=== PATIENT | male | born 1945 | race Caucasian/White ===

== ENCOUNTER 2018-09-14 10:27 | Emergency (ER) | payer MEDICARE, BC ==
--- NOTE | 2018-09-14 11:24 | EDM.PDOC ---
ED HPI GENERAL MEDICAL PROBLEM - General Chief Complaint: Skin Complaint Stated Complaint: BLISTERS ON FINGERS Time Seen by Provider: 09/14/18 10:50 Source of Information: Reports: Patient History Limitations: Reports: No Limitations - History of Present Illness INITIAL COMMENTS - FREE TEXT/NARRATIVE: This 288 pound. 73-year-old man who was a smoker age [age] years of age and quit without history of diabetes or other serious illness except for obesity presents with a history of 4 days ago shoveling the snow for half an hour. He had gloves on but the globes were not well insulated. He now has bullae on the right dominant hand second third and fourth fingers while palmar surface and the left third fourth fingertips. 4 medicines he was amantadine and Protonix and a multivitamin. No history of taking aspirin. He is not an alcoholic. - Related Data Allergies Allergy/AdvReac Type Severity Reaction Status Date / Time No Known Allergies Allergy Verified 09/14/18 10:37 Home Meds: Home Meds Multivitamin [Multiple Vitamins] 1 each PO DAILY 07/11/13 [History] Pantoprazole Sodium [Protonix] 40 mg PO DAILY 07/11/13 [History] amLODIPine Besylate [Amlodipine Besylate] 5 mg PO DAILY 09/14/18 [History] Past Medical History Other Musculoskeletal History: STATES NECK SURGERY. SCAR NOTED AT CERVICAL AREA. DENIES DEFICITS Other Neuro History: STATES HAD BRAIN ANEURYSM - Past Surgical History Other Musculoskeletal Surgeries/Procedures:: LOWER BACK SURGERY ED ROS GENERAL - Review of Systems Review Of Systems: ROS reveals no pertinent complaints other than HPI. ED EXAM, SKIN/RASH Exam: See Below Exam Limited By: No Limitations General Appearance: Alert, WD/WN, No Apparent Distress, Other (A pleasant Obese gentleman with a large abdomen who is in no distress but concerned about the blisters on his fingers.) Eye Exam: Bilateral Eye: Normal Inspection Ears: Normal External Exam Nose: Normal Inspection, Normal Mucosa Throat/Mouth: Normal Inspection, Normal Lips Head: Atraumatic, Normocephalic Neck: Normal Inspection, Supple, Non-Tender Respiratory/Chest: No Respiratory Distress, Lungs Clear, Normal Breath Sounds, No Accessory Muscle Use Cardiovascular: Normal Peripheral Pulses, Regular Rate, Rhythm, No Edema, No Gallop, No JVD, No Murmur, No Rub Peripheral Pulses: 1+: Radial (L), Radial (R) GI/Abdominal: Normal Bowel Sounds, Soft, Non-Tender, No Organomegaly, No Distention, No Abnormal Bruit, No Mass (Male) Exam: Deferred Rectal (Males) Exam: Deferred Back Exam: Normal Inspection Extremities: Non-Tender, No Pedal Edema Neurological: Alert, Oriented, CN II-XII Intact, Normal Cognition, Normal Gait, Normal Reflexes, No Motor/Sensory Deficits Psychiatric: Normal Affect Skin: Warm, Dry, Other (Bullae demonstrated on the right second third and fourth finger that extends from the tip to the DIP palmar surface, and fifth finger bulla extends from the tip to the MP joint. Has trace skin erythema on the norris the MP joints 3,4,5. Left hand distal tips involving 3 cm of the distal norris surface fingers 3,4,5. Fingers 2 and 1 are intact.) Lymphatic: No Adenopathy Course - Re-Assessments/Exams Free Text/Narrative Re-Assessment/Exam: 09/14/18 11:28 consultation obtained from the hyperbaric oxygen experts) [facility]. He is outside the window for hyperbaric oxygen treatment. The surgeon for the burn unit at [facility] has been called and will be calling back. Free Text/Narrative Re-Assessment/Exam: 09/14/18 12:39 Debridement performed all palmar surface of fingers; 25 minutes spent with debridement. Then bacitracin applied Adaptic dressing and tube gauze applied. Patient's tetanus is up-to-date within last 5 years. Departure - Departure Time of Disposition: 11:30 (Still waiting for consultation from the surgery burn unit at the [facility] meehan bite specialist 11:30 to return a call. 11:37 we inquired with Karen Preston uplink up which they have with the burn unit could be arranged so the surgeon at [facility] could view Mr. Roselia perez. At [address] Garcia returned the call from [facility]. Case was discussed. Plans are to debride removed the bullae, apply bacitracin and then Adaptic dressing, have daily dressing changes and follow-up with her surgeon Dr. Blanco next 2 days. Patient will return to the ED on Sunday, tomorrow 09/15/18 to have dressing change. Dad will see Dr. Blanco on 09/16/18. Status has been discussed with Dr. Blanco.) Disposition: Home, Self-Care 01 Condition: Good Clinical Impression: Frostbite of both upper extremities - Discharge Information *PRESCRIPTION DRUG MONITORING PROGRAM REVIEWED*: Not Applicable *COPY OF PRESCRIPTION DRUG MONITORING REPORT IN PATIENT YOLANDA: Not Applicable Referrals: Anders Johnson MD [Primary Care Provider] -
[2018-09-14] MEDS ORDERED: Ibuprofen 600 MG Tab PO ONE (11:34)
[2018-09-14] MEDS ORDERED: Bacitracin Oint 28.35 GM Tube ONE (11:50)
[2018-09-14] MEDS ORDERED: Bacitracin Oint 28.35 GM Tube TOP SCH (12:30)
[2018-09-14 14:25] VITALS: BP 149/74
== END 2018-09-14 13:15 | disposition home or self-care (01) ==
LOC: FB.ED 10:27
DX: T33.532A Superficial frostbite of left finger(s), initial encounter (principal); T33.531A Superficial frostbite of right finger(s), initial encounter; Z79.899 Other long term (current) drug therapy; X31.XXXA Exposure to excessive natural cold, initial encounter
CPT/HCPCS: 16020; 99283; 99284; A9270

== ENCOUNTER → 2018-09-15 | Emergency (ER) | payer MEDICARE, BC ==
[2018-09-15 13:45] VITALS: BP 181/106
== END ==
LOC: FB.EDOUT 11:11
DX: Z53.21 Procedure and treatment not carried out due to patient leaving prior to being seen by health care provider (principal)

== ENCOUNTER 2019-01-09 09:08 | Emergency (ER) | payer MEDICARE, BC ==
--- NOTE | 2019-01-09 10:06 | EDM.PDOC ---
ED HPI GENERAL MEDICAL PROBLEM - General Chief Complaint: General Stated Complaint: FALL Time Seen by Provider: 01/09/19 10:02 Source of Information: Reports: Patient History Limitations: Reports: No Limitations - History of Present Illness INITIAL COMMENTS - FREE TEXT/NARRATIVE: Patient tripped over a rock while walking in an alley, fell to ground. No LOC, denies headache or neck pain. Denies pain of any kind or dizziness. Neighbor saw him fall and called 911. The patient was able to get up on his own and ambulate. Last Tdap 2016. Duration: Hour(s): (1) Location: Reports: Head Severity: Mild - Related Data Allergies Allergy/AdvReac Type Severity Reaction Status Date / Time No Known Allergies Allergy Verified 09/14/18 10:37 Home Meds: Home Meds Multivitamin [Multiple Vitamins] 1 each PO DAILY 07/11/13 [History] Pantoprazole Sodium [Protonix] 40 mg PO DAILY 07/11/13 [History] Hydrocodone/Acetaminophen [Hydrocodon-Acetaminophen 5-325] 1 each PO Q4HR PRN # 16 tablet 09/14/18 [Rx] amLODIPine Besylate [Amlodipine Besylate] 5 mg PO DAILY 09/14/18 [History] Past Medical History HEENT History: Reports: Cataract Cardiovascular History: Reports: Arrhythmia, Hypertension Gastrointestinal History: Reports: GERD, Irritable Bowel Syndrome Other Musculoskeletal History: STATES NECK SURGERY. SCAR NOTED AT CERVICAL AREA. DENIES DEFICITS Other Neuro History: STATES HAD BRAIN ANEURYSM Psychiatric History: Reports: Anxiety, Depression - Past Surgical History Other Musculoskeletal Surgeries/Procedures:: LOWER BACK SURGERY Social & Family History - Tobacco Use Smoking Status *Q: Never Smoker - Caffeine Use Caffeine Use: Reports: None - Alcohol Use Alcohol Use History: No - Recreational Drug Use Recreational Drug Use: No ED ROS GENERAL - Review of Systems Review Of Systems: ROS reveals no pertinent complaints other than HPI. ED EXAM, GENERAL - Physical Exam Exam: See Below Exam Limited By: No Limitations General Appearance: Alert, WD/WN, No Apparent Distress Eye Exam: Bilateral Eye: EOMI, PERRL Nose: Normal Inspection Throat/Mouth: Normal Inspection, No Airway Compromise Head: Other (right forehead abrasion, no facial tenderness) Neck: Non-Tender, Full Range of Motion Respiratory/Chest: No Respiratory Distress, Lungs Clear, Normal Breath Sounds Cardiovascular: Regular Rate, Rhythm, No Murmur GI/Abdominal: Normal Bowel Sounds, Soft, Non-Tender, No Distention Back Exam: Normal Inspection, Full Range of Motion Extremities: Normal Inspection, Normal Range of Motion, Non-Tender Neurological: Alert, Oriented, Normal Cognition, No Motor/Sensory Deficits Psychiatric: Normal Affect, Normal Mood Skin Exam: Warm, Dry EKG INTERPRETATION EKG Date: 01/09/19 Time: 09:39 Rhythm: Other (sinus tachycardia) Rate (Beats/Min): 102 [place]: Normal P-Wave: Present QRS: Normal ST-T: Normal QT: Normal Course - Vital Signs Last Recorded V/S: Last Vital Signs Temp 36.8 C 01/09/19 09:08 Pulse 121 H 01/09/19 09:08 Resp 18 01/09/19 09:08 BP 186/86 H 01/09/19 09:08 Pulse Ox 96 01/09/19 09:08 - Orders/Labs/Meds Orders: Active Orders 24 hr Category Date Time Status EKG Documentation Completion [RC] ASDIRECTED Care 01/09/19 09:12 Active Sodium Chloride 0.9% [Saline Flush] Med 01/09/19 10:33 Active 10 ml FLUSH ASDIRECTED PRN Saline Lock Insert [OM.PC] Routine Oth 01/09/19 10:33 Ordered EKG 12 Lead [EK] Stat Ther 01/09/19 09:12 Ordered Medication Orders Sodium Chloride (Saline Flush) 10 ml FLUSH ASDIRECTED PRN PRN Reason: Keep Vein Open Last Admin: 01/09/19 11:05 Dose: 10 ml Labs: Laboratory Tests 01/09/19 01/09/19 01/09/19 Range/Units 10:08 10:10 10:10 WBC 6.0 (4.5-12.0) X10-3/uL RBC 4.31 (4.30-5.75) x10(6)uL Hgb 13.8 (13.5-17.8) g/dL Hct 41.0 (30.0-51.3) % MCV 95.0 (80-96) fL MCH 32.0 (27.7-33.6) pg MCHC 33.7 (32.2-35.4) g/dL RDW 13.3 (11.5-15.5) % Plt Count 189 (125-369) X10(3)uL MPV 7.1 L (7.4-10.4) fL Neut % (Auto) 67.3 (46-82) % Lymph % (Auto) 23.7 (13-37) % [place] % (Auto) 6.2 (4-12) % Eos % (Auto) 2 (1.0-5.0) % Baso % (Auto) 0 (0-2) % Neut # (Auto) 4.1 (1.6-8.3) # Lymph # (Auto) 1.4 (0.6-5.0) # [place] # (Auto) 0.4 (0.0-1.3) # Eos # (Auto) 0.1 (0.0-0.8) # Baso # (Auto) 0.0 (0.0-0.2) # Sodium 148 H (135-145) mmol/L Potassium 4.5 (3.5-5.3) mmol/L Chloride 111 H (100-110) mmol/L Carbon Dioxide 31 (21-32) mmol/L BUN 19 H (7-18) mg/dL Creatinine 1.4 H (0.70-1.30) mg/dL Est Cr Clr Drug Dosing TNP Estimated GFR (MDRD) 49 L (>60) BUN/Creatinine Ratio 13.6 (9-20) Glucose 123 H (80-116) mg/dL Calcium 9.3 (8.6-10.2) mg/dL Urine Color Yellow (YELLOW) Urine Appearance Clear (CLEAR) Urine pH 5.0 (5.0-6.5) Ur Specific [place] 1.015 (1.010-1.025) Urine Protein Negative (NEGATIVE) mg/dL Urine Glucose (UA) Normal (NORMAL) mg/dL Urine Ketones Negative (NEGATIVE) mg/dL Urine Occult Blood Negative (NEGATIVE) Urine Nitrite Negative (NEGATIVE) Urine Bilirubin Negative (NEGATIVE) Urine Urobilinogen Normal (NEGATIVE) mg/dL Ur Leukocyte Esterase Negative (NEGATIVE) Urine RBC 0-5 (0-5) Urine WBC 0-5 (0-5) Ur Squamous Epith Cells Occasional (NS,R,O) Urine Bacteria Few H (NS) 01/09/19 Range/Units 12:00 WBC (4.5-12.0) X10-3/uL RBC (4.30-5.75) x10(6)uL Hgb (13.5-17.8) g/dL Hct (30.0-51.3) % MCV (80-96) fL MCH (27.7-33.6) pg MCHC (32.2-35.4) g/dL RDW (11.5-15.5) % Plt Count (125-369) X10(3)uL MPV (7.4-10.4) fL Neut % (Auto) (46-82) % Lymph % (Auto) (13-37) % [place] % (Auto) (4-12) % Eos % (Auto) (1.0-5.0) % Baso % (Auto) (0-2) % Neut # (Auto) (1.6-8.3) # Lymph # (Auto) (0.6-5.0) # [place] # (Auto) (0.0-1.3) # Eos # (Auto) (0.0-0.8) # Baso # (Auto) (0.0-0.2) # Sodium 147 H (135-145) mmol/L Potassium 4.5 (3.5-5.3) mmol/L Chloride 110 (100-110) mmol/L Carbon Dioxide 30 (21-32) mmol/L BUN 18 (7-18) mg/dL Creatinine 1.3 (0.70-1.30) mg/dL Est Cr Clr Drug Dosing TNP Estimated GFR (MDRD) 54 L (>60) BUN/Creatinine Ratio 13.8 (9-20) Glucose 116 (80-116) mg/dL Calcium 9.1 (8.6-10.2) mg/dL Urine Color (YELLOW) Urine Appearance (CLEAR) Urine pH (5.0-6.5) Ur Specific [place] (1.010-1.025) Urine Protein (NEGATIVE) mg/dL Urine Glucose (UA) (NORMAL) mg/dL Urine Ketones (NEGATIVE) mg/dL Urine Occult Blood (NEGATIVE) Urine Nitrite (NEGATIVE) Urine Bilirubin (NEGATIVE) Urine Urobilinogen (NEGATIVE) mg/dL Ur Leukocyte Esterase (NEGATIVE) Urine RBC (0-5) Urine WBC (0-5) Ur Squamous Epith Cells (NS,R,O) Urine Bacteria (NS) Meds: Medications Generic Name Dose Route Start Last Admin Trade Name Patricia PRN Reason Stop Dose Admin Sodium Chloride 10 ml 01/09/19 10:33 01/09/19 11:05 Saline Flush FLUSH 10 ml ASDIRECTED PRN Administration Keep Vein Open Discontinued Medications Generic Name Dose Route Start Last Admin Trade Name Patricia PRN Reason Stop Dose Admin Lactated Ringer's 1,000 mls @ 999 mls/hr 01/09/19 10:33 01/09/19 11:05 Ringers, Lactated IV 01/09/19 11:33 999 mls/hr BOLUS ONE Administration - Radiology Interpretation Free Text/Narrative:: CT Head: possible nasal bone fracture, otherwise unremarkable (per Dr. Serrano). CT C-spine: no acute abnormalities (per Dr. Serrano). - Re-Assessments/Exams Free Text/Narrative Re-Assessment/Exam: Na improved slightly from 148 to 147 after 1L LR bolus. Patient is w/o complaints. Ate lunch, is alert, conversive and ambulates w/o assistance. 01/09/19 12:28 BP 154/80, HR 106, Sa02 98% RA Departure - Departure Time of Disposition: 12:28 Disposition: Home, Self-Care 01 Condition: Good Clinical Impression: Minor head trauma, Dehydration with hypernatremia - Discharge Information *PRESCRIPTION DRUG MONITORING PROGRAM REVIEWED*: No *COPY OF PRESCRIPTION DRUG MONITORING REPORT IN PATIENT YOLANDA: Not Applicable Instructions: Head Injury, Adult, [id number], Hypernatremia, [id number], Dehydration, Adult, [id number] Referrals: Anders Johnson MD [Primary Care Provider] - 2 Days Forms: ED Department Discharge Additional Instructions: Drink plenty of fluids. Follow up with Dr. Johnson in 2 days. Return to the ER if symptoms worsen. - My Orders Last 24 Hours: My Active Orders 01/09/19 09:12 EKG Documentation Completion [RC] ASDIRECTED EKG 12 Lead [EK] Stat 01/09/19 10:33 Sodium Chloride 0.9% [Saline Flush] 10 ml FLUSH ASDIRECTED PRN Saline Lock Insert [OM.PC] Routine - Assessment/Plan Last 24 Hours: My Active Orders 01/09/19 09:12 EKG Documentation Completion [RC] ASDIRECTED EKG 12 Lead [EK] Stat 01/09/19 10:33 Sodium Chloride 0.9% [Saline Flush] 10 ml FLUSH ASDIRECTED PRN Saline Lock Insert [OM.PC] Routine
[2019-01-09] MEDS ORDERED: Lactated Ringers 1,000 ML IV ONE (10:33)
[2019-01-09] MEDS ORDERED: Sodium Chloride 0.9% 10 ML Syringe FLUSH PRN (10:33)
--- NOTE | 2019-01-09 11:17 | CT ---
INDICATION: Trauma, fell this a.m., abrasion on center of forehead, no headache. CT HEAD WITHOUT CONTRAST: Spiral examination of the brain axially with sagittal and coronal reconstructions was obtained 01/09/19 - no comparisons. Total exam DLP = 1,399.62 mGy-cm. A small retention cyst was noted in the left sphenoidal air cell with some posterior debris, somewhat frothy appearing, in both sphenoidal air cells, which could be on the basis of sinuses but should be correlated clinically. The paranasal sinuses were otherwise unremarkable. The mastoid air cells are well-aerated. There appears to be a chip fracture fragment at the tip of the nasal bones with slight depression. This should be correlated clinically. No cranial fracture site was seen. No shift of midline structures was noted. Ventricles are prominent, compatible with central atrophy of moderate degree. There is some patchy decreased density in the white matter, frontoparietal, compatible with a mild degree of microvascular disease. There appears to be some minimal internal carotid artery calcification. The sulci in the sylvian fissure areas are prominent, suggesting asymmetrical temporal cortical atrophy. No bleeding site or hematoma was seen. The orbits appear to be intact. IMPRESSION: 1. No definite acute intracranial abnormality. 2. Central atrophy and temporal cortical atrophy. 3. Minimal calcifications in internal carotid arteries. 4. Findings in sphenoidal air cells could represent a mild or chronic sinusitis. 5. Anterior nasal bone fracture with slight depression - minimal deformity. Report was called to Dr. Costello at 0952 hours on 01/09/19. [facility]
--- NOTE | 2019-01-09 11:40 | CT ---
INDICATION: Trauma, fell this a.m., abrasion on center of forehead, no headache. CT CERVICAL WITHOUT CONTRAST: Spiral 2.5 mm axial sections were obtained through the cervical spine with sagittal and coronal reconstructions, 01/09/19 - no comparisons. Total exam DLP = 565.24 mGy-cm. Degenerative changes of moderate degree are noted at the atlantoodontoid joint with some sclerosis, hypertrophic change, and minimal narrowing of that joint space. The atlas, odontoid, and axis were otherwise intact. Vertebral body heights were maintained with no evidence of an acute fracture or dislocation. Prevertebral space appeared to be normal. Bone density appeared to be normal. Evidence of hypertrophic degenerative changes and disk disease are noted at all cervical levels with very minimal disk disease suggested at the C3-4, C4-5 levels with more severe degenerative disk disease and much more severe hypertrophic degenerative changes at C5-6, C6-7 with sclerosis and subchondral cystic changes at those levels but more prominent at C5-6. Narrowing of those neural foramina is noted of moderate to moderately severe degree on the left with relatively mild narrowing of the right-sided C6-7 neural foramen on the right with very minimal narrowing on the left at that level. Impingement on the left-sided C3-4, C4-5 neural foramina is very minimal due to hypertrophic spurring off vertebral bodies posterolaterally. Degenerative changes are noted at the uncinate joints in general and are most severe at C5-6 , C6-7, mostly on the left. IMPRESSION: 1. No acute fracture or dislocation. 2. Degenerative changes and disk disease, as noted above, with impingement on mostly left-sided neural foramina. Report was called to Dr. Costello at 0952 hours on 01/09/19. [facility]
[2019-01-09 16:17] VITALS: BP 154/80
== END 2019-01-09 12:40 | disposition home or self-care (01) ==
LOC: FB.ED 09:08
DX: S09.90XA Unspecified injury of head, initial encounter (principal); E87.0 Hyperosmolality and hypernatremia; E86.0 Dehydration; F41.9 Anxiety disorder, unspecified; F32.9 Major depressive disorder, single episode, unspecified; I10 Essential (primary) hypertension; Z79.899 Other long term (current) drug therapy; W18.09XA Striking against other object with subsequent fall, initial encounter
CPT/HCPCS: 36415; 70450; 72125; 80048; 81001; 85025; 93005; 96360; 99284; J7120

== ENCOUNTER 2019-09-14 11:58 | Emergency (ER) | payer MEDICARE, BC ==
[2019-09-14] MEDS ORDERED: cloNIDine 0.1 MG Tab PO ONE (12:24)
--- NOTE | 2019-09-14 12:31 | EDM.PDOC ---
ED HPI GENERAL MEDICAL PROBLEM - General Stated Complaint: DIZZY,HIGH BLOOD PRESSURE Time Seen by Provider: 09/14/19 12:15 Source of Information: Reports: Patient, Family History Limitations: Reports: No Limitations - History of Present Illness INITIAL COMMENTS - FREE TEXT/NARRATIVE: got up this am and dressed had breakfast As he was getting up from taking breakfast felt sudden dizziness , like he was going to fall , tried to go to bathroom and was incontinent of urine states he does get incontinent sometimes Onset: Today Onset Date: 09/14/19 Onset Time: 08:00 Duration: Hour(s): Location: Reports: Head, Face Severity: Mild Improves with: Reports: Rest Worsens with: Reports: Movement Associated Symptoms: Reports: Headaches, Weakness - Related Data Allergies Allergy/AdvReac Type Severity Reaction Status Date / Time No Known Allergies Allergy Verified 09/14/18 10:37 Home Meds: Home Meds Multivitamin [Multiple Vitamins] 1 each PO DAILY 07/11/13 [History] Pantoprazole Sodium [Protonix] 40 mg PO DAILY 07/11/13 [History] amLODIPine Besylate [Amlodipine Besylate] 5 mg PO DAILY 09/14/18 [History] Meclizine [Antivert] 25 mg PO Q6H PRN #30 tab 09/14/19 [Rx] amLODIPine [Norvasc] 5 mg PO DAILY #30 tab 09/14/19 [Rx] Past Medical History HEENT History: Reports: Cataract Cardiovascular History: Reports: Arrhythmia, Hypertension Gastrointestinal History: Reports: GERD, Irritable Bowel Syndrome Genitourinary History: Reports: Urinary Incontinence Other Musculoskeletal History: STATES NECK SURGERY. SCAR NOTED AT CERVICAL AREA. DENIES DEFICITS Other Neuro History: STATES HAD BRAIN ANEURYSM Psychiatric History: Reports: Anxiety, Depression - Past Surgical History Other Musculoskeletal Surgeries/Procedures:: LOWER BACK SURGERY Social & Family History - Family History Family Medical History: Noncontributory - Caffeine Use Caffeine Use: Reports: None ED ROS GENERAL - Review of Systems Review Of Systems: See Below Constitutional: Reports: Weakness, Fatigue HEENT: Reports: No Symptoms Respiratory: Reports: No Symptoms Cardiovascular: Reports: Lightheadedness, Palpitations Endocrine: Reports: Fatigue GI/Abdominal: Reports: No Symptoms : Reports: Incontinence, Urgency Musculoskeletal: Reports: No Symptoms Skin: Reports: No Symptoms Neurological: Reports: Dizziness, Headache, Difficulty Walking. Denies: Pre- Existing Deficit, Trouble Speaking, Change in Speech, Gait Disturbance Hematologic/Lymphatic: Reports: No Symptoms Immunologic: Reports: No Symptoms ED EXAM, DIZZINESS - Physical Exam Exam: See Below Exam Limited By: No Limitations General Appearance: Alert, WD/WN, No Apparent Distress, Lethargic Eye Exam: Bilateral Eye: EOMI Ears: Hearing Grossly Normal, TM Bulging. No: Auricular Tenderness Nose: Clear Rhinorrhea Throat/Mouth: Normal Inspection Head Exam: Atraumatic, Normocephalic Neck: Normal Inspection, Supple, Non-Tender, Full Range of Motion Respiratory/Chest: No Respiratory Distress, Lungs Clear GI/Abdominal: Soft, Non-Tender Neurological: Alert, Normal Mood/Affect, Oriented x 3 Back Exam: Normal Inspection, Full Range of Motion Extremities: Pedal Edema, Joint Swelling Psychiatric: Normal Affect, Normal Mood EKG INTERPRETATION EKG Date: 09/14/19 Rhythm: NSR Beaver: Normal P-Wave: Present QRS: Normal ST-T: Normal Comparison: NA - No Prior EKG Course - Vital Signs Last Recorded V/S: Last Vital Signs Temp 36.3 C 09/14/19 15:41 Pulse 100 09/14/19 15:41 Resp 18 09/14/19 15:41 BP 200/84 H 09/14/19 15:41 Pulse Ox 95 09/14/19 15:41 - Orders/Labs/Meds Orders: Active Orders 24 hr Category Date Time Status EKG Documentation Completion [RC] ASDIRECTED Care 09/14/19 12:27 Active Chest 2V [CR] Stat Exams 09/14/19 12:26 Taken PSA TOTAL+% FREE Routine Lab 09/14/19 12:50 Received EKG 12 Lead [EK] Routine Ther 09/14/19 12:27 Ordered Labs: Laboratory Tests 09/14/19 09/14/19 09/14/19 Range/Units 12:50 12:50 12:50 WBC 6.1 (4.5-12.0) X10-3/uL RBC 4.28 L (4.30-5.75) x10(6)uL Hgb 13.7 (13.5-17.8) g/dL Hct 40.6 (30.0-51.3) % MCV 95.0 (80-96) fL MCH 31.9 (27.7-33.6) pg MCHC 33.6 (32.2-35.4) g/dL RDW 12.9 (11.5-15.5) % Plt Count 196 (125-369) X10(3)uL MPV 7.0 L (7.4-10.4) fL Neut % (Auto) 68.9 (46-82) % Lymph % (Auto) 20.9 (13-37) % [place] % (Auto) 7.9 (4-12) % Eos % (Auto) 2 (1.0-5.0) % Baso % (Auto) 1 (0-2) % Neut # (Auto) 4.2 (1.6-8.3) # Lymph # (Auto) 1.3 (0.6-5.0) # Berg[place] # (Auto) 0.5 (0.0-1.3) # Eos # (Auto) 0.1 (0.0-0.8) # Baso # (Auto) 0.0 (0.0-0.2) # PT (8.7-11.1) INR (0.89-1.13) Sodium 145 (135-145) mmol/L Potassium 4.7 (3.5-5.3) mmol/L Chloride 106 (100-110) mmol/L Carbon Dioxide 30 (21-32) mmol/L BUN 20 H (7-18) mg/dL Creatinine 1.2 (0.70-1.30) mg/dL Est Cr Clr Drug Dosing TNP Estimated GFR (MDRD) 59 L (>60) BUN/Creatinine Ratio 16.7 (9-20) Glucose 109 (80-116) mg/dL Calcium 9.2 (8.6-10.2) mg/dL Total Bilirubin 0.3 (0.1-1.3) mg/dL AST 19 (5-25) IU/L ALT < 6 L (12-36) U/L Alkaline Phosphatase 65 (56-112) IU/L NT-Pro-B Natriuret Pep (<=450) pg/mL Total Protein 7.4 (6.0-8.0) g/dL Albumin 3.5 (3.2-4.6) g/dL Globulin 3.9 g/dL Albumin/Globulin Ratio 0.9 Urine Color Yellow (YELLOW) Urine Appearance Clear (CLEAR) Urine pH 8.0 H (5.0-6.5) Ur Specific Graff 1.015 (1.010-1.025) Urine Protein Negative (NEGATIVE) mg/dL Urine Glucose (UA) Normal (NORMAL) mg/dL Urine Ketones Negative (NEGATIVE) mg/dL Urine Occult Blood Negative (NEGATIVE) Urine Nitrite Negative (NEGATIVE) Urine Bilirubin Negative (NEGATIVE) Urine Urobilinogen Normal (NEGATIVE) mg/dL Ur Leukocyte Esterase Negative (NEGATIVE) Urine RBC 0-5 (0-5) Urine WBC 0-5 (0-5) Ur Squamous Epith Cells Occasional (NS,R,O) Urine Bacteria Few H (NS) 09/14/19 09/14/19 Range/Units 12:50 12:50 WBC (4.5-12.0) X10-3/uL RBC (4.30-5.75) x10(6)uL Hgb (13.5-17.8) g/dL Hct (30.0-51.3) % MCV (80-96) fL MCH (27.7-33.6) pg MCHC (32.2-35.4) g/dL RDW (11.5-15.5) % Plt Count (125-369) X10(3)uL MPV (7.4-10.4) fL Neut % (Auto) (46-82) % Lymph % (Auto) (13-37) % [place] % (Auto) (4-12) % Eos % (Auto) (1.0-5.0) % Baso % (Auto) (0-2) % Neut # (Auto) (1.6-8.3) # Lymph # (Auto) (0.6-5.0) # [place] # (Auto) (0.0-1.3) # Eos # (Auto) (0.0-0.8) # Baso # (Auto) (0.0-0.2) # PT 9.1 (8.7-11.1) INR 0.94 (0.89-1.13) Sodium (135-145) mmol/L Potassium (3.5-5.3) mmol/L Chloride (100-110) mmol/L Carbon Dioxide (21-32) mmol/L BUN (7-18) mg/dL Creatinine (0.70-1.30) mg/dL Est Cr Clr Drug Dosing Estimated GFR (MDRD) (>60) BUN/Creatinine Ratio (9-20) Glucose (80-116) mg/dL Calcium (8.6-10.2) mg/dL Total Bilirubin (0.1-1.3) mg/dL AST (5-25) IU/L ALT (12-36) U/L Alkaline Phosphatase (56-112) IU/L NT-Pro-B Natriuret Pep 197 (<=450) pg/mL Total Protein (6.0-8.0) g/dL Albumin (3.2-4.6) g/dL Globulin g/dL Albumin/Globulin Ratio Urine Color (YELLOW) Urine Appearance (CLEAR) Urine pH (5.0-6.5) Ur Specific Graff (1.010-1.025) Urine Protein (NEGATIVE) mg/dL Urine Glucose (UA) (NORMAL) mg/dL Urine Ketones (NEGATIVE) mg/dL Urine Occult Blood (NEGATIVE) Urine Nitrite (NEGATIVE) Urine Bilirubin (NEGATIVE) Urine Urobilinogen (NEGATIVE) mg/dL Ur Leukocyte Esterase (NEGATIVE) Urine RBC (0-5) Urine WBC (0-5) Ur Squamous Epith Cells (NS,R,O) Urine Bacteria (NS) Meds: Medications Discontinued Medications Generic Name Dose Route Start Last Admin Trade Name Freq PRN Reason Stop Dose Admin Amlodipine Besylate 5 mg 09/14/19 15:03 09/14/19 15:20 Norvasc PO 09/14/19 15:04 5 mg ONETIME ONE Administration Clonidine HCl 0.2 mg 09/14/19 12:24 Catapres PO 09/14/19 12:25 ONETIME ONE Meclizine HCl 50 mg 09/14/19 13:43 09/14/19 14:43 Antivert PO 09/14/19 13:44 50 mg ONETIME ONE Administration - Re-Assessments/Exams Free Text/Narrative Re-Assessment/Exam: 09/14/19 13:59 pt had labs , EKG , chest Xray done no obvious pathology noted to have elevated BP : then given clonidine dizziness still preset , pt given meclizine Departure - Departure Time of Disposition: 15:50 Disposition: Home, Self-Care 01 Clinical Impression: Incontinence of urine, Hypertension, essential, benign, Dizziness and giddiness , BPPV (benign paroxysmal positional vertigo) - Discharge Information *PRESCRIPTION DRUG MONITORING PROGRAM REVIEWED*: Not Applicable *COPY OF PRESCRIPTION DRUG MONITORING REPORT IN PATIENT YOLANDA: Not Applicable Prescriptions: amLODIPine [Norvasc] 5 mg PO DAILY #30 tab Meclizine [Antivert] 25 mg PO Q6H PRN #30 tab PRN Reason: Dizziness Referrals: Anders Johnson MD [Primary Care Provider] - Forms: ED Department Discharge Additional Instructions: 1) Make appointment to see your PCP , you may need to have stress test and ultrasound done 2) Keeps feet elevated when you sit 3) call if any concerns Sepsis Event Note - Focused Exam Vital Signs: Vital Signs Temp Pulse Resp BP BP Pulse Ox 09/14/19 15:41 36.3 C 100 18 200/84 H 95 09/14/19 15:20 174/76 H Date Exam was Performed: 09/14/19 Time Exam was Performed: 19:24 - My Orders Last 24 Hours: My Active Orders 09/14/19 12:26 Chest 2V [CR] Stat 09/14/19 12:27 EKG Documentation Completion [RC] ASDIRECTED EKG 12 Lead [EK] Routine 09/14/19 12:50 PSA TOTAL+% FREE Routine - Assessment/Plan Last 24 Hours: My Active Orders 09/14/19 12:26 Chest 2V [CR] Stat 09/14/19 12:27 EKG Documentation Completion [RC] ASDIRECTED EKG 12 Lead [EK] Routine 09/14/19 12:50 PSA TOTAL+% FREE Routine
[2019-09-14] MEDS ORDERED: Meclizine 25 MG Tab PO ONE (13:43)
[2019-09-14] MEDS ORDERED: amLODIPine 5 MG Tab PO ONE (15:03)
[2019-09-14 15:49] VITALS: BP 200/84; PULSE 100
--- NOTE | 2019-09-15 11:25 | CR ---
INDICATION: Dizziness. CHEST, 2 VIEWS: PA and lateral views of the chest were obtained 09/14/19 - no comparisons. The heart size is not well evaluated, but does not appear grossly enlarged. Relatively poor inspiration is suggested. The aorta is somewhat tortuous. Overlying EKG leads are noted. Moderate degenerative changes with hypertrophic lipping off vertebral bodies is noted in the [id number] thoracic spine. With the poor inspiration, it is difficult to entirely exclude minimal patchy bronchopneumonia at the lung bases. There are some heavy markings at the costophrenic angles. However, no consolidating pneumonia or effusion was seen. Slightly flattened diaphragm leaves, prominent AP diameter and minimal hyperaeration raise question of COPD - correlate clinically. IMPRESSION: 1. Possible ASHD. Heart size not well evaluated. 2. Somewhat heavy markings at the lung bases - costophrenic angles - fibrosis versus minimal patchy bronchopneumonia - correlate clinically. 3. Question mild degree of COPD. 4. DJD spine. MTDD
[2019-09-16 09:09] LABS: PROSTATE SPECIFIC AG, SERUM 0.2 ng/mL (0.0-4.0); PSA, FREE 0.06 ng/mL
== END 2019-09-14 15:40 | disposition home or self-care (01) ==
LOC: FB.ED 11:58
DX: I10 Essential (primary) hypertension (principal); H81.10 Benign paroxysmal vertigo, unspecified ear; R32 Unspecified urinary incontinence; K21.9 Gastro-esophageal reflux disease without esophagitis; Z79.899 Other long term (current) drug therapy
CPT/HCPCS: 36415; 71046; 80053; 81001; 83880; 84153; 84154; 85025; 85610; 93005; 99284; A9270

== ENCOUNTER 2019-09-20 20:58 | Emergency (ER) | payer MEDICARE, BC ==
[2019-09-20] MEDS ORDERED: Diphtheria,Pertussis(Acell),Tetanus Vaccine 0.5 ML SDV IM ONE (21:25)
--- NOTE | 2019-09-20 21:28 | EDM.PDOC ---
ED HPI GENERAL MEDICAL PROBLEM - General Chief Complaint: Head Injury Stated Complaint: FELL Time Seen by Provider: 09/20/19 21:25 Source of Information: Reports: Family History Limitations: Reports: No Limitations - History of Present Illness INITIAL COMMENTS - FREE TEXT/NARRATIVE: Hit head ,after he slipped. Has a 3 cm lac to the eyebrow,Left.No LOC. Not on Coumadin - Related Data Allergies Allergy/AdvReac Type Severity Reaction Status Date / Time No Known Allergies Allergy Verified 09/14/18 10:37 Home Meds: Home Meds Multivitamin [Multiple Vitamins] 1 each PO DAILY 07/11/13 [History] Pantoprazole Sodium [Protonix] 40 mg PO DAILY 07/11/13 [History] amLODIPine Besylate [Amlodipine Besylate] 5 mg PO DAILY 09/14/18 [History] Meclizine [Antivert] 25 mg PO Q6H PRN #30 tab 09/14/19 [Rx] amLODIPine [Norvasc] 5 mg PO DAILY #30 tab 09/14/19 [Rx] Past Medical History HEENT History: Reports: Cataract Cardiovascular History: Reports: Arrhythmia, Hypertension Gastrointestinal History: Reports: GERD, Irritable Bowel Syndrome Genitourinary History: Reports: Urinary Incontinence Other Musculoskeletal History: STATES NECK SURGERY. SCAR NOTED AT CERVICAL AREA. DENIES DEFICITS Other Neuro History: STATES HAD BRAIN ANEURYSM Psychiatric History: Reports: Anxiety, Depression - Past Surgical History Other Musculoskeletal Surgeries/Procedures:: LOWER BACK SURGERY Social & Family History - Family History Family Medical History: Noncontributory - Caffeine Use Caffeine Use: Reports: None ED ROS GENERAL - Review of Systems Review Of Systems: Comprehensive ROS is negative, except as noted in HPI. ED EXAM, HEAD INJURY - Physical Exam Exam: See Below Exam Limited By: No Limitations General Appearance: Alert, WD/WN, No Apparent Distress Head: Normocephalic, Facial Lacerations (3 cm,above left eyebrow), Raccoon Eyes ED LACERATION/WOUND & BRANDON PROC - Laceration/Wound Repair Left Forehead Lac/wound length in cm: 3 Appearance: Subcutaneous, Clean Distal NVT: Neuro & Vascular Intact, No Tendon Injury Skin Prep: Chlorhexidine (Hibiciens) Closed with: Wound Adhesive Sterile Dressing Applied: Nurse Tetanus Status Addressed: Yes Complications: No Course - Vital Signs Last Recorded V/S: Last Vital Signs Temp 97.5 F 09/20/19 20:58 Pulse 122 H 09/20/19 20:58 Resp 18 09/20/19 20:58 BP 187/85 H 09/20/19 20:58 Pulse Ox 96 09/20/19 20:58 - Orders/Labs/Meds Orders: Active Orders 24 hr Category Date Time Status Vaccines to be Administered [RC] PER UNIT ROUTINE Care 09/20/19 21:25 Ordered Diphth,Pertuss(Acell),Tet Vac [Adacel] Med 09/20/19 21:25 Once 0.5 ml IM .ONCE ONE Departure - Departure Time of Disposition: 21:27 Disposition: Home, Self-Care 01 Clinical Impression: Scalp laceration - Discharge Information Referrals: Anders Johnson MD [Primary Care Provider] - Sepsis Event Note - Evaluation Sepsis Screening Result: No Definite Risk - Focused Exam Vital Signs: Vital Signs Temp Pulse Resp BP Pulse Ox 09/20/19 20:58 97.5 F 122 H 18 187/85 H 96 Date Exam was Performed: 09/20/19 Time Exam was Performed: 21:25 - Problem List & Annotations (1) Laceration of face SNOMED Code(s): 207540823 Code(s): S01.81XA - LACERATION W/O FOREIGN BODY OF OTH PART OF HEAD, INIT ENCNTR Status: Acute Current Visit: Yes Qualifiers: Encounter type: initial encounter Qualified Code(s): S01.81XA - Laceration without foreign body of other part of head, initial encounter - Problem List Review Problem List Initiated/Reviewed/Updated: Yes - My Orders Last 24 Hours: My Active Orders 09/20/19 21:25 Vaccines to be Administered [RC] PER UNIT ROUTINE Diphth,Pertuss(Acell),Tet Vac [Adacel] 0.5 ml IM .ONCE ONE - Assessment/Plan Last 24 Hours: My Active Orders 09/20/19 21:25 Vaccines to be Administered [RC] PER UNIT ROUTINE Diphth,Pertuss(Acell),Tet Vac [Adacel] 0.5 ml IM .ONCE ONE Plan: Follow up PRN
[2019-09-20 21:41] VITALS: BP 143/77; PULSE 103
== END 2019-09-20 21:38 | disposition home or self-care (01) ==
LOC: FB.ED 20:58
DX: S01.81XA Laceration without foreign body of other part of head, initial encounter (principal); I10 Essential (primary) hypertension; K21.9 Gastro-esophageal reflux disease without esophagitis; Z79.899 Other long term (current) drug therapy; Z23 Encounter for immunization; W01.0XXA Fall on same level from slipping, tripping and stumbling without subsequent striking against object, initial encounter
CPT/HCPCS: 12013; 90471; 90715; 99282; 99282-25

== ENCOUNTER 2021-06-26 12:17 | Emergency (ER) | payer MEDICARE, BC ==
--- NOTE | 2021-06-26 12:40 | EDM.PDOC ---
ED HPI GENERAL MEDICAL PROBLEM - General Chief Complaint: General Stated Complaint: WEAKNESS Time Seen by Provider: 06/26/21 12:21 Source of Information: Reports: Patient, Family - History of Present Illness INITIAL COMMENTS - FREE TEXT/NARRATIVE: 76-year-old gentleman brought to the emergency department by his son due to weakness and dyspnea on exertion. Patient does not have a past medical history significant for CAD/CHF and has never had a heart attack. However, over the last several weeks patient states he has becoming weaker and more more short of breath with exertion. He denies fever chills, sick contacts, change in bowel or bladder habits. However, he does take oxybutynin, donepezil, and tamsulosin which is likely secondary to BPH and dementia. - Related Data Allergies Allergy/AdvReac Type Severity Reaction Status Date / Time No Known Allergies Allergy Verified 06/26/21 13:48 Home Meds: Home Meds Donepezil [Aricept] 5 mg PO BEDTIME 06/26/21 [History] Oxybutynin 5 mg PO BID 06/26/21 [History] Sertraline [Zoloft] 50 mg PO DAILY 06/26/21 [History] Tamsulosin [Tamsulosin 24 Hr] 0.4 mg PO DAILY 06/26/21 [History] amLODIPine [Norvasc] 10 mg PO DAILY 06/26/21 [History] Past Medical History HEENT History: Reports: Cataract Cardiovascular History: Reports: Arrhythmia, Hypertension Gastrointestinal History: Reports: GERD, Irritable Bowel Syndrome Genitourinary History: Reports: Urinary Incontinence Other Musculoskeletal History: STATES NECK SURGERY. SCAR NOTED AT CERVICAL AREA. DENIES DEFICITS Other Neuro History: STATES HAD BRAIN ANEURYSM Psychiatric History: Reports: Anxiety, Depression - Past Surgical History Other Musculoskeletal Surgeries/Procedures:: LOWER BACK SURGERY Social & Family History - Family History Family Medical History: No Pertinent Family History - Caffeine Use Caffeine Use: Reports: None ED ROS GENERAL - Review of Systems Review Of Systems: See Below Constitutional: Reports: Malaise, Weakness, Fatigue HEENT: Reports: No Symptoms Cardiovascular: Reports: Edema Endocrine: Reports: Fatigue GI/Abdominal: Reports: No Symptoms : Reports: Urinary Retention Musculoskeletal: Reports: No Symptoms Skin: Reports: No Symptoms Neurological: Reports: Difficulty Walking, Weakness Psychiatric: Reports: Other (Mild dementia) Hematologic/Lymphatic: Reports: No Symptoms Immunologic: Reports: No Symptoms ED EXAM, GENERAL - Physical Exam Exam: See Below Exam Limited By: No Limitations General Appearance: Alert, Mild Distress Eye Exam: Bilateral Eye: EOMI, Other (Right exotropia) Head: Atraumatic, Normocephalic Neck: Normal Inspection Respiratory/Chest: Decreased Breath Sounds, Crackles, Other (Patient has normal O2 saturation, approximately 95%, on room air but does become short of breath with simply conversation.) Cardiovascular: Regular Rate, Rhythm, Other (Note that heart sounds are distant and difficult to auscultate) Peripheral Pulses: 2+: Radial (L), Radial (R) GI/Abdominal: Normal Bowel Sounds, Soft, Non-Tender Back Exam: Normal Inspection Extremities: Pedal Edema, Other (Note that the left calf appears more swollen th an the right calf with no significant pitting edema) Neurological: Alert, Oriented, Normal Cognition Psychiatric: Anxious Skin Exam: Warm, Dry Course - Vital Signs Text/Narrative:: Patient EKG had poor baseline but is normal sinus rhythm with no obvious ST-T segment abnormalities. Patient has increased BNP, chest x-ray, and lung exam consistent with congestive heart failure. Troponin is mildly elevated and we are waiting on follow-up troponin at this time. Patient has elevated creatinine consistent with his prior labs with chronic kidney disease, patient does not have an acute kidney injury at this time. Patient does have exacerbation of congestive heart failure and NSTEMI. Patient given Lasix IV, 324 mg aspirin p.o., and 1 mg/kg enoxaparin. Patient tested positive for COVID-19. Orthostatic pressures are positive. Note that patient likely has had orthostatic hypotension for some period of time and has gotten worse due to recent infection and CHF exacerbation. Patient medications are consistent with BPH with urinary retention and these medications are known to cause orthostatic hypotension. Last Recorded V/S: Last Vital Signs Temp 36.6 C 06/26/21 12:25 Pulse 103 H 06/26/21 12:25 Resp 18 06/26/21 12:25 BP 148/68 H 06/26/21 12:25 Pulse Ox 95 06/26/21 12:25 Orthostatic Blood Pressure [ 110/65 Standing] Orthostatic Blood Pressure [ 160/74 Sitting] - Orders/Labs/Meds Orders: Active Orders 24 hr Category Date Time Status Bladder Scan [RC] ASDIRECTED Care 06/26/21 12:33 Active EKG Documentation Completion [RC] ASDIRECTED Care 06/26/21 14:05 Active Orthostatic Vital Signs [RC] ASDIRECTED Care 06/26/21 12:35 Active CXR [Chest 2V] [CR] Stat Exams 06/26/21 12:31 Taken Echo Comp w Cont [US] Stat Exams 06/26/21 14:45 Ordered VL Duplex Lwr Ext Veins Comp [US] Stat Exams 06/26/21 14:46 Ordered TROPONIN I [CHEM] Stat Lab 06/26/21 16:00 Ordered Enoxaparin [Lovenox] Med 06/26/21 15:00 Active 100 mg SUBCUT Q12H EKG 12 Lead [EK] Routine Ther 06/26/21 14:04 Ordered Medication Orders Enoxaparin Sodium (Enoxaparin 100 Mg/1 Ml Syringe) 100 mg SUBCUT Q12H KAREN Last Admin: 06/26/21 14:48 Dose: 100 mg Documented by: LIV Labs: Laboratory Tests 06/26/21 06/26/21 06/26/21 Range/Units 12:51 13:00 13:00 WBC 5.0 (3.2-10.1) x10-3/uL RBC 4.78 (3.90-5.90) x10(6)uL Hgb 14.8 (12.9-17.7) g/dL Hct 44.5 (38.3-50.1) % MCV 93.1 (80.8-98.7) fL MCH 31.0 (27.0-33.3) pg MCHC 33.3 (28.7-35.3) g/dL RDW 13.8 (12.4-15.0) % Plt Count 159 (117-477) x10(3)uL MPV 6.4 L (6.7-11.0) fL Neut % (Auto) 74.8 H (40.3-71.8) % Lymph % (Auto) 10.6 L (15.8-45.3) % [place] % (Auto) 14.1 (5.5-15.2) % Eos % (Auto) 0.1 (0.1-6.8) % Baso % (Auto) 0.4 (0.3-3.8) % Neut # (Auto) 3.7 (1.7-6.9) x10-3/uL Lymph # (Auto) 0.5 (0.5-4.5) x10-3/uL [place] # (Auto) 0.7 (0.0-1.2) x10-3/uL Eos # (Auto) 0.0 (0.0-0.6) x10-3/uL Baso # (Auto) 0.0 (0.0-0.3) x10-3/uL Sodium 136 (135-145) mmol/L Potassium 4.2 (3.5-5.3) mmol/L Chloride 99 L D (100-110) mmol/L Carbon Dioxide 28 (21-32) mmol/L BUN 21 H (7-18) mg/dL Creatinine 1.5 H (0.70-1.30) mg/dL Est Cr Clr Drug Dosing 37.95 mL/min Estimated GFR (MDRD) 45 L (>60) BUN/Creatinine Ratio 14.0 (9-20) Glucose 130 H (80-116) mg/dL Calcium 8.7 (8.6-10.2) mg/dL Total Bilirubin 0.6 (0.1-1.3) mg/dL AST 181 H* D (5-25) IU/L ALT 7 L D (12-36) U/L Alkaline Phosphatase 65 (56-112) IU/L Troponin I (4.0-60.3) pg/mL NT-Pro-B Natriuret Pep (<=450) pg/mL Total Protein 8.1 H (6.0-8.0) g/dL Albumin 3.7 (3.2-4.6) g/dL Globulin 4.4 g/dL Albumin/Globulin Ratio 0.8 Urine Color (YELLOW) Urine Appearance (CLEAR) Urine pH (5.0-6.5) Ur Specific [place] (1.010-1.025) Urine Protein (NEGATIVE) mg/dL Urine Glucose (UA) (NORMAL) mg/dL Urine Ketones (NEGATIVE) mg/dL Urine Occult Blood (NEGATIVE) Urine Nitrite (NEGATIVE) Urine Bilirubin (NEGATIVE) Urine Urobilinogen (NEGATIVE) mg/dL Ur Leukocyte Esterase (NEGATIVE) Urine RBC (0-5) Urine WBC (0-5) Ur Squamous Epith Cells (NS,R,O) Urine Bacteria (NS) Fine Granular Casts (NS) Coarse Granular Casts (NS) SARS-CoV-2 RNA (LIZETT) Positive H (NEGATIVE) 06/26/21 06/26/21 06/26/21 Range/Units 13:00 13:00 14:10 WBC (3.2-10.1) x10-3/uL RBC (3.90-5.90) x10(6)uL Hgb (12.9-17.7) g/dL Hct (38.3-50.1) % MCV (80.8-98.7) fL MCH (27.0-33.3) pg MCHC (28.7-35.3) g/dL RDW (12.4-15.0) % Plt Count (117-477) x10(3)uL MPV (6.7-11.0) fL Neut % (Auto) (40.3-71.8) % Lymph % (Auto) (15.8-45.3) % [place] % (Auto) (5.5-15.2) % Eos % (Auto) (0.1-6.8) % Baso % (Auto) (0.3-3.8) % Neut # (Auto) (1.7-6.9) x10-3/uL Lymph # (Auto) (0.5-4.5) x10-3/uL [place] # (Auto) (0.0-1.2) x10-3/uL Eos # (Auto) (0.0-0.6) x10-3/uL Baso # (Auto) (0.0-0.3) x10-3/uL Sodium (135-145) mmol/L Potassium (3.5-5.3) mmol/L Chloride (100-110) mmol/L Carbon Dioxide (21-32) mmol/L BUN (7-18) mg/dL Creatinine (0.70-1.30) mg/dL Est Cr Clr Drug Dosing mL/min Estimated GFR (MDRD) (>60) BUN/Creatinine Ratio (9-20) Glucose (80-116) mg/dL Calcium (8.6-10.2) mg/dL Total Bilirubin (0.1-1.3) mg/dL AST (5-25) IU/L ALT (12-36) U/L Alkaline Phosphatase (56-112) IU/L Troponin I 69.8 H* (4.0-60.3) pg/mL NT-Pro-B Natriuret Pep 2066 H* (<=450) pg/mL Total Protein (6.0-8.0) g/dL Albumin (3.2-4.6) g/dL Globulin g/dL Albumin/Globulin Ratio Urine Color Yellow (YELLOW) Urine Appearance Slightly cloudy (CLEAR) Urine pH 5.0 (5.0-6.5) Ur Specific [place] 1.020 (1.010-1.025) Urine Protein 100 H (NEGATIVE) mg/dL Urine Glucose (UA) Normal (NORMAL) mg/dL Urine Ketones Negative (NEGATIVE) mg/dL Urine Occult Blood Large H (NEGATIVE) Urine Nitrite Negative (NEGATIVE) Urine Bilirubin Negative (NEGATIVE) Urine Urobilinogen Normal (NEGATIVE) mg/dL Ur Leukocyte Esterase Negative (NEGATIVE) Urine RBC 50-75 H (0-5) Urine WBC 0-5 (0-5) Ur Squamous Epith Cells Few H (NS,R,O) Urine Bacteria Moderate H (NS) Fine Granular Casts Moderate H (NS) Coarse Granular Casts Moderate H (NS) SARS-CoV-2 RNA (LIZETT) (NEGATIVE) Meds: Medications Generic Name Dose Route Start Last Admin Trade Name Patricia PRN Reason Stop Dose Admin Enoxaparin Sodium 100 mg 06/26/21 15:00 06/26/21 14:48 Enoxaparin 100 Mg/1 Ml Syringe SUBCUT 100 mg Q12H KAREN Administration Discontinued Medications Generic Name Dose Route Start Last Admin Trade Name Patricia PRN Reason Stop Dose Admin Aspirin 324 mg 06/26/21 21:00 Aspirin 81 Mg Tab.Chew PO BEDTIME KAREN Aspirin Confirm 06/26/21 14:25 06/26/21 14:39 Aspirin 81 Mg Tab.Chew Administered 06/26/21 14:26 Not Given Dose 324 mg .ROUTE .STK-MED ONE Aspirin 324 mg 06/26/21 14:31 06/26/21 14:35 Aspirin 81 Mg Tab.Chew PO 06/26/21 14:32 324 mg ONETIME STA Administration Enoxaparin Sodium 110 mg 06/26/21 14:45 06/26/21 14:48 Enoxaparin 100 Mg/1 Ml Syringe SUBCUT Not Given Q12H KAREN Enoxaparin Sodium Confirm 06/26/21 14:42 06/26/21 14:47 Enoxaparin 100 Mg/1 Ml Syringe Administered 06/26/21 14:43 Not Given Dose 100 mg .ROUTE .STK-MED ONE Furosemide 40 mg 06/26/21 14:19 06/26/21 14:26 Furosemide 40 Mg/4 Ml Vial IVPUSH 06/26/21 14:20 40 mg NOW ONE Administration Departure - Departure Time of Disposition: 15:49 Disposition: DC/Tfer to Acute Hospital 02 Condition: Fair Clinical Impression: NSTEMI (non-ST elevated myocardial infarction), Lab test positive for detection of COVID-19 virus, Urinary retention due to benign prostatic hyperplasia, Orthostatic hypotension, Congestive heart failure (CHF) - Discharge Information *PRESCRIPTION DRUG MONITORING PROGRAM REVIEWED*: Not Applicable *COPY OF PRESCRIPTION DRUG MONITORING REPORT IN PATIENT YOLANDA: Not Applicable Referrals: Anders Johnson MD [Primary Care Provider] - Forms: ED Department Discharge Sepsis Event Note (ED) - Evaluation Sepsis Screening Result: No Definite Risk - Focused Exam Vital Signs: Vital Signs Temp Pulse Resp BP Pulse Ox 06/26/21 12:25 36.6 C 103 H 18 148/68 H 95 - My Orders Last 24 Hours: My Active Orders 06/26/21 12:31 CXR [Chest 2V] [CR] Stat 06/26/21 12:33 Bladder Scan [RC] ASDIRECTED 06/26/21 12:35 Orthostatic Vital Signs [RC] ASDIRECTED 06/26/21 14:04 EKG 12 Lead [EK] Routine 06/26/21 14:05 EKG Documentation Completion [RC] ASDIRECTED 06/26/21 14:45 Echo Comp w Cont [US] Stat 06/26/21 14:46 VL Duplex Lwr Ext Veins Comp [US] Stat 06/26/21 15:00 Enoxaparin [Lovenox] 100 mg SUBCUT Q12H 06/26/21 16:00 TROPONIN I [CHEM] Stat - Assessment/Plan Last 24 Hours: My Active Orders 06/26/21 12:31 CXR [Chest 2V] [CR] Stat 06/26/21 12:33 Bladder Scan [RC] ASDIRECTED 06/26/21 12:35 Orthostatic Vital Signs [RC] ASDIRECTED 06/26/21 14:04 EKG 12 Lead [EK] Routine 06/26/21 14:05 EKG Documentation Completion [RC] ASDIRECTED 06/26/21 14:45 Echo Comp w Cont [US] Stat 06/26/21 14:46 VL Duplex Lwr Ext Veins Comp [US] Stat 06/26/21 15:00 Enoxaparin [Lovenox] 100 mg SUBCUT Q12H 06/26/21 16:00 TROPONIN I [CHEM] Stat
[2021-06-26] MEDS ORDERED: Furosemide 40 MG/4 ML VIAL IVPUSH ONE (14:19)
[2021-06-26] MEDS ORDERED: Aspirin 81 MG Tab.Chew ONE (14:25)
[2021-06-26] MEDS ORDERED: Aspirin 81 MG Tab.Chew PO STA (14:31)
--- NOTE | 2021-06-26 14:38 | PCM.EKG ---
#1 Interpretation EKG Date: 06/26/21 Time: 14:06 EKG Interpretation Comments: Normal sinus rhythm, rate 89, poor baseline quality, nonspecific ST-T segment abnormalities in the lateral leads, inferior leads baseline quality prevents further analysis
[2021-06-26] MEDS ORDERED: Enoxaparin 100 MG/1 ML Syringe ONE (14:42)
[2021-06-26] MEDS ORDERED: Enoxaparin 100 MG/1 ML Syringe SUBCUT SCH ×2 (14:45→15:00)
[2021-06-26 15:59] VITALS: BP 130/72; PULSE 92
[2021-06-26] MEDS ORDERED: Aspirin 81 MG Tab.Chew PO SCH (21:00)
== END 2021-06-26 16:30 ==
LOC: FB.ED 12:17
DX: U07.1 COVID-19 (principal); I21.4 Non-ST elevation (NSTEMI) myocardial infarction; I95.1 Orthostatic hypotension; I11.0 Hypertensive heart disease with heart failure; I50.9 Heart failure, unspecified; N40.1 Benign prostatic hyperplasia with lower urinary tract symptoms; R33.9 Retention of urine, unspecified; Z79.899 Other long term (current) drug therapy
CPT/HCPCS: 36415; 51702; 51798; 71046; 80053; 81001; 83880; 84484; 85025; 93005; 96374; 99285-25; A9270-GY; J1650; J1940; U0002

== ENCOUNTER 2021-07-11 10:07 | Inpatient (IN) | payer MEDICARE, BC ==
[2021-07-11] MEDS ORDERED: Acetaminophen 500 MG Tab PO PRN (17:06)
--- NOTE | 2021-07-11 17:12 | PCM.HP.2 ---
H&P History of Present Illness - General Date of Service: 07/11/21 Admit Problem/Dx: Admission Diagnosis/Problem Admission Diagnosis/Problem Weakness Source of Information: Old Records History Limitations: Reports: Altered Mental Status - History of Present Illness Initial Comments - Free Text/Narative: Mckay is a 76-year-old male is admitted to from [facility] for rehabilitation. He was there for CHF exacerbation, NSTEMI type 2,COVID-19 that was asymptomatic. He does have a history of Alzheimer's dementia, and cannot give much history. Because of physical deconditioning, he's being admitted for PT and OT. He was admitted on 26 June, discharged today. His in the last 2 weeks difficulty 19 complications. He has no pain this afternoon. - Related Data Allergies/Adverse Reactions: Allergies Allergy/AdvReac Type Severity Reaction Status Date / Time No Known Allergies Allergy Verified 06/26/21 13:48 Home Medications: Home Meds Donepezil [Aricept] 5 mg PO BEDTIME 06/26/21 [History] Oxybutynin 5 mg PO BID 06/26/21 [History] Sertraline [Zoloft] 50 mg PO DAILY 06/26/21 [History] Tamsulosin [Tamsulosin 24 Hr] 0.4 mg PO DAILY 06/26/21 [History] Acetaminophen [Tylenol Extra Strength] 500 mg PO Q6H PRN 07/11/21 [History] Melatonin 9 mg PO BEDTIME 07/11/21 [History] QUEtiapine [SEROquel] 12.5 mg PO BEDTIME 07/11/21 [History] Sennosides/Docusate Sodium [Senna-S] 1 tab PO BID 07/11/21 [History] polyethylene glycoL 3350 [MiraLAX] 17 gm PO DAILY 07/11/21 [History] Past Medical History HEENT History: Reports: Cataract Cardiovascular History: Reports: Arrhythmia, Hypertension Gastrointestinal History: Reports: GERD, Irritable Bowel Syndrome Genitourinary History: Reports: Urinary Incontinence Other Musculoskeletal History: STATES NECK SURGERY. SCAR NOTED AT CERVICAL AREA. DENIES DEFICITS Other Neuro History: STATES HAD BRAIN ANEURYSM Psychiatric History: Reports: Anxiety, Depression - Past Surgical History Other Musculoskeletal Surgeries/Procedures:: LOWER BACK SURGERY Social & Family History - Family History Family Medical History: No Pertinent Family History - Caffeine Use Caffeine Use: Reports: None H&P Review of Systems - Review of Systems: Review Of Systems: Comprehensive ROS is negative, except as noted in HPI. Exam - Exam Exam: See Below - Vital Signs Vital Signs: Last Vital Signs Temp 97.6 F 07/11/21 15:30 Pulse 74 07/11/21 15:30 Resp 16 07/11/21 15:30 BP 152/80 H 07/11/21 15:30 Pulse Ox 94 L 07/11/21 15:30 - Exam General: Alert HEENT: PERRLA, Hearing Intact, Mucosa Moist & [place], Nares Patent, Normal Nasal Septum, Posterior Pharynx Clear, Conjunctiva Clear, EOMI, EACs Clear, TMs Clear Neck: Supple, Trachea Midline, 2 Lungs: Clear to Auscultation, Normal Respiratory Effort Cardiovascular: Regular Rate, Regular Rhythm GI/Abdominal Exam: Normal Bowel Sounds, Soft, Non-Tender, No Organomegaly, No Distention, No Abnormal Bruit, No Mass, Pelvis Stable (Male) Exam: Deferred Rectal (Males) Exam: Deferred Back Exam: Normal Inspection, Full Range of Motion, NT Extremities: Normal Inspection, Normal Range of Motion, Non-Tender, No Pedal Bhanu ma, Normal Capillary Refill Skin: Warm, Dry, Intact Neurological: Cranial Nerves Intact, Reflexes Equal Bilateral Neuro Extensive - Mental Status: Disorientation to Time. No: Oriented x3, Memory Intact Neuro Extensive - Motor, Sensory, Reflexes: CN II-XII Intact, Normal Gait, Normal Reflexes Psychiatric: Alert, Normal Affect, Normal Mood Sepsis Event Note - Focused Exam Vital Signs: Vital Signs Temp Pulse Resp BP Pulse Ox 07/11/21 15:30 97.6 F 74 16 152/80 H 94 L - Problem List (1) Physical deconditioning SNOMED Code(s): 58320382605407 ICD Code: R53.81 - OTHER MALAISE Status: Acute Current Visit: Yes (2) Alzheimer disease SNOMED Code(s): 93223671 ICD Code: G30.9 - ALZHEIMER'S DISEASE, UNSPECIFIED; F02.80 - DEMENTIA IN OTH DISEASES CLASSD ELSWHR W/O BEHAVRL DISTURB Status: Acute Current Visit: Yes (3) Congestive heart failure (CHF) SNOMED Code(s): 51285096 ICD Code: I50.9 - HEART FAILURE, UNSPECIFIED Status: Acute Current Visit: No (4) Hypertension, essential, benign SNOMED Code(s): 3514080 ICD Code: I10 - ESSENTIAL (PRIMARY) HYPERTENSION Status: Acute Current Visit: No (5) Lab test positive for detection of COVID-19 virus SNOMED Code(s): 5962023459532506 ICD Code: U07.1 - COVID-19 Status: Acute Current Visit: No (6) BPH (benign prostatic hyperplasia) SNOMED Code(s): 627518412 ICD Code: N40.0 - BENIGN PROSTATIC HYPERPLASIA WITHOUT LOWER URINRY TRACT SYMP Status: Acute Current Visit: Yes Qualifiers: Lower urinary tract symptom presence: symptoms present (7) HTN (hypertension) SNOMED Code(s): 47016116 ICD Code: I10 - ESSENTIAL (PRIMARY) HYPERTENSION Status: Acute Current Visit: Yes Qualifiers: Hypertension type: primary hypertension Qualified Code(s): I10 - Essential (primary) hypertension Problem List Initiated/Reviewed/Updated: Yes Orders Last 24hrs: Active Orders 24 hr Category Date Time Status Patient Status [ADT] Routine ADT 07/11/21 17:04 Ordered Height and Weight [RC] WEEKLY Care 07/11/21 17:04 Ordered Oxygen Therapy [RC] PRN Care 07/11/21 17:04 Ordered Up With Assistance [RC] ASDIRECTED Care 07/11/21 17:04 Ordered VTE/DVT Education [RC] Per Unit Routine Care 07/11/21 17:04 Ordered Vaccine to be Administered/Admin Charge [RC] .discharge Care 07/11/21 15:47 Active Vital Signs [RC] PER UNIT ROUTINE Care 07/11/21 17:04 Ordered OT Evaluation and Treatment [CONS] Routine Cons 07/11/21 17:04 Ordered PT Evaluation and Treatment [CONS] Routine Cons 07/11/21 17:04 Ordered Regular Diet [DIET] Diet 07/11/21 Breakfast Ordered Acetaminophen [Tylenol Extra Strength] Med 07/11/21 17:06 Ordered 500 mg PO Q6H PRN Docusate Sodium/Sennosides [Senna Plus] Med 07/11/21 21:00 Ordered 1 tab PO BID Donepezil [Aricept] Med 07/11/21 21:00 Ordered 5 mg PO BEDTIME Melatonin Med 07/11/21 21:00 Ordered 9 mg PO BEDTIME Oxybutynin Med 07/11/21 21:00 Ordered 5 mg PO BID QUEtiapine [SEROqueL] Med 07/11/21 21:00 Ordered 12.5 mg PO BEDTIME Sertraline [Zoloft] Med 07/12/21 09:00 Ordered 50 mg PO DAILY Tamsulosin [Flomax] Med 07/12/21 09:00 Ordered 0.4 mg PO DAILY polyethylene glycoL 3350 [MiraLAX] Med 07/12/21 09:00 Ordered 17 gm PO DAILY Resuscitation Status Routine Resus Stat 07/11/21 17:04 Ordered Assessment/Plan Comment:: Admit to [facility],with PT/OT and routine orders.
[2021-07-11] MEDS: Melatonin 3 MG Tab PO SCH (21:29)
[2021-07-11] MEDS: Oxybutynin 5 MG Tab PO SCH (21:30)
[2021-07-11] MEDS: Donepezil 5 MG Tab PO SCH (21:30)
[2021-07-11] MEDS: QUEtiapine 25 MG Tab PO SCH (21:30)
[2021-07-12] MEDS: Polyethylene Glycol 3350 Powder 17 GM Packet PO SCH (08:45)
[2021-07-12] MEDS: Oxybutynin 5 MG Tab PO SCH ×2 (08:47→20:21)
[2021-07-12] MEDS: Tamsulosin 0.4 MG Cap.ER PO SCH (08:47)
[2021-07-12] MEDS: Sertraline 50 MG Tab PO SCH (08:48)
[2021-07-12] MEDS: QUEtiapine 25 MG Tab PO SCH (20:21)
[2021-07-12] MEDS: Donepezil 5 MG Tab PO SCH (20:21)
[2021-07-12] MEDS: Melatonin 3 MG Tab PO SCH (20:21)
[2021-07-13] MEDS: Sertraline 50 MG Tab PO SCH (08:43)
[2021-07-13] MEDS: Tamsulosin 0.4 MG Cap.ER PO SCH (08:43)
[2021-07-13] MEDS: Oxybutynin 5 MG Tab PO SCH ×2 (08:43→20:03)
[2021-07-13] MEDS: Polyethylene Glycol 3350 Powder 17 GM Packet PO SCH (08:43)
[2021-07-13] MEDS: Melatonin 3 MG Tab PO SCH (20:02)
[2021-07-13] MEDS: Donepezil 5 MG Tab PO SCH (20:02)
[2021-07-13] MEDS: QUEtiapine 25 MG Tab PO SCH (20:03)
[2021-07-14 07:53] VITALS: BP 152/71; PULSE 84
[2021-07-14] MEDS: Tamsulosin 0.4 MG Cap.ER PO SCH (07:59)
[2021-07-14] MEDS: Oxybutynin 5 MG Tab PO SCH (07:59)
[2021-07-14] MEDS: Polyethylene Glycol 3350 Powder 17 GM Packet PO SCH (07:59)
[2021-07-14] MEDS: Sertraline 50 MG Tab PO SCH (07:59)
--- NOTE | 2021-07-14 11:49 | DISCH ---
DISCHARGE DATE: 07/14/2021 REASON FOR ADMISSION: 1. Physical deconditioning. 2. COVID-19. 3. Hypertension. 4. Dementia. 5. Congestive heart failure. 6. benign prostatic hypertrophy. DISCHARGE DIAGNOSES: 1. Physical deconditioning. 2. COVID-19. 3. Hypertension. 4. Dementia. 5. Congestive heart failure. 6. benign prostatic hypertrophy. CONSULTATIONS: Physical and Occupational Therapy. BRIEF HISTORY: Mr. Veloz is a 76-year-old male with dementia, was admitted to [facility] with CHF and COVID-19 infection that was asymptomatic. He was discharged here to swing bed for physical strengthening and rehab. Apart from his memory disturbance, he exhibited mild gait disturbance and weakness, improved with physical therapy and is ready to go home today to attend his 's . I will discharge him home with his home prescriptions plus Seroquel that is new, started at [facility]. He will continue with home health, nursing, physical therapy and occupational therapy at home. I spent more than 35 minutes in the discharge of the patient. /[id number] SHUKRI/KRISTEL
== END 2021-07-14 09:15 | disposition home health service (06) | DRG 947 ==
LOC: FB.MS 15:29
PROVIDERS: ADMIT Family Medicine; ATTEND Family Medicine
DX: R53.81 Other malaise (principal); U07.1 COVID-19; G30.9 Alzheimer's disease, unspecified; F02.80 Dementia in other diseases classified elsewhere, unspecified severity, without behavioral disturbance, psychotic disturbance, mood disturbance, and anxiety; I11.0 Hypertensive heart disease with heart failure; K21.9 Gastro-esophageal reflux disease without esophagitis; F41.9 Anxiety disorder, unspecified; F32.A Depression, unspecified; N40.1 Benign prostatic hyperplasia with lower urinary tract symptoms; N39.498 Other specified urinary incontinence; Z23 Encounter for immunization; Z79.899 Other long term (current) drug therapy; Z98.49 Cataract extraction status, unspecified eye
CPT/HCPCS: 90686; 97116-GP; 97161-GP; 97165-GO; 97535-GO; A9270-GY; G0008